=== PATIENT | male | born 1970 | race Caucasian/White ===

== ENCOUNTER 2017-12-25 14:00 | Emergency (ER) | payer SELFPAY ==
[~2017-12-25 14:00] MED LIST: Sodium Chloride 0.9% 1,000 ML BAG ONE
[2017-12-25 14:51] LABS: #Basophils 0.1 thou/uL (0.0-0.2); #Eosinphils 0.5 thou/uL (0.0-0.7); #Lymphocytes 1.6 thou/uL (1.20-3.40); #Monocytes 0.5 thou/uL (0.11-0.59); #Neutrophils 5.7 thou/uL (1.40-6.50); %Basophils 1.4 % (0.0-1.0); %Eosinophils 5.8 % (0.0-10.0); %Lymphocytes 18.9 % (21.0-51.0); %Monocytes 5.9 % (0.0-10.0); %Neutrophils 68.1 % (42.0-75.0); Hemoglobin 12.2 g/dL (14.0-18.0); Mean Corpuscular HGB CONC 33.2 g/dL (32.0-36.0); Mean Corpuscular Volume 90.4 fL (78.0-98.0); Mean Platelet Volume 6.6 fL (7.4-10.4); Platelet Count 297 thou/uL (130-400); RBC Distribution Width 11.2 % (11.5-14.5); Red Blood Cell (RBC) Count 4.06 mill/uL (4.70-6.10); White Blood Cell (WBC) Count 8.3 thou/uL (4.8-10.8)
[2017-12-25 15:05] LABS: ALT (SGPT) 14 U/L (8-55); AST (SGOT) 11 U/L (5-34); Albumin 3.3 g/dL (3.5-5.0); Alkaline Phosphatase 135 U/L (40-150); Anion Gap 14 mmol/L (10-20); BUN (Urea Nitrogen) 10 mg/dL (8.9-20.6); Bilirubin, Total 0.4 mg/dL (0.2-1.2); CK (CPK) 81 U/L (30-200); CKMB 1.6 ng/mL (0-6.6); Calc. Creatinine Clearance 0 mL/min (70-130); Calcium 9.2 mg/dL (7.8-10.44); Carbon Dioxide 25 mmol/L (22-29); Chloride 99 mmol/L (98-107); Estimated GFR-MDRD 62; Globulin 4.1 g/dL (2.4-3.5); Glucose 495 mg/dL (70-105); Potassium 3.8 mmol/L (3.5-5.1); Protein, Total 7.4 g/dL (6.0-8.3); Sodium 134 mmol/L (136-145); Troponin I Less than 0.010 ng/mL (< 0.028)
[2017-12-25] MEDS ORDERED: Insulin Regular 300 UNITS/3 ML VIAL ONE ×3 (15:14→16:09)
--- NOTE | 2017-12-25 15:35 | RAD ---
LEFT FOOT THREE VIEWS: History: 47-year-old male with history of infection with concern for osteomyelitis. FINDINGS: There is prominent soft tissue swelling of the great toe. Mild degenerative changes are noted. There is some narrowing at the interphalangeal joint of the great toe. No overt bony erosion or destructive changes. Diffuse soft tissue swelling, particularly at the dorsal aspect of the foot. IMPRESSION: Marked soft tissue swelling of the great toe without overt bony erosion or destructive changes. If th ere is clinical concern for osteomyelitis, follow up MRI study is recommended for further assessment in that regard. Diffuse soft tissue swelling. POS: [facility]
[2017-12-25] MEDS ORDERED: Clindamycin/D5W 600 mg/50 ml Premix Bag ONE (15:38)
== END 2017-12-25 16:45 | disposition short-term general hospital (02) ==
LOC: MADERS 14:00
DX: E11.621 Type 2 diabetes mellitus with foot ulcer (principal); L97.529 Non-pressure chronic ulcer of other part of left foot with unspecified severity; E11.65 Type 2 diabetes mellitus with hyperglycemia; L03.116 Cellulitis of left lower limb; I10 Essential (primary) hypertension
CPT/HCPCS: 36416; 80053; 82553; 83605; 84484; 85025; 85379; 87040; 87070; 87205; 96361; 96365; J1815; J3490; J7050